=== PATIENT | male | born 1950 | race Caucasian/White ===

== ENCOUNTER 2025-02-28 13:04 | Outpatient (CLI) | payer MEDICARE, BC | END 2025-02-28 13:05 | disposition home or self-care (01) | LOC: SCSMRI 13:04 | PROVIDERS: ATTEND Family Medicine | DX: S43.421D Sprain of right rotator cuff capsule, subsequent encounter (principal); M25.511 Pain in right shoulder; M75.121 Complete rotator cuff tear or rupture of right shoulder, not specified as traumatic; M25.411 Effusion, right shoulder; S43.431A Superior glenoid labrum lesion of right shoulder, initial encounter; M19.011 Primary osteoarthritis, right shoulder ==